=== PATIENT | male | born 1955 | race Caucasian/White ===

== ENCOUNTER → 2016-07-13 | Outpatient (CLI) | payer BC ==
[2016-07-13 13:49] LABS: BLOOD UREA NITROGEN 15 mg/dl (7-18); BUN/CREATININE RATIO 10.8 (10-20); CALCIUM 9.6 mg/dl (8.5-10.1); CARBON DIOXIDE 30 mmol/L (21-32); CHLORIDE 103 mmol/L (98-107); GLUCOSE 82 mg/dl (70-99); POTASSIUM 4.4 mmol/L (3.5-5.1); SODIUM 141 mmol/L (136-145)
[2016-07-13 13:56] LABS: CHOLESTEROL 226 mg/dl (0-200); CHOLESTEROL/HDL RATIO 3.2; HDL CHOLESTEROL 70 mg/dl; LDL CHOLESTEROL CALCULATED 139 mg/dl; TRIGLYCERIDES 83 mg/dl (0-150); VERY LOW DENSITY LIPOPROT CALC 17 mg/dl
== END | disposition home or self-care (01) ==
LOC: C.LABMFLN 13:39
PROVIDERS: ATTEND Family Medicine
DX: I10 Essential (primary) hypertension (principal); E78.00 Pure hypercholesterolemia, unspecified; Z12.5 Encounter for screening for malignant neoplasm of prostate

== ENCOUNTER → 2017-05-12 | Outpatient (CLI) | payer BC ==
[~2017-05-12] MED LIST: OPTIRAY 320 IV PRN; PATIENT'S ALLERGY INFO NEEDS ENTERED SCH
--- NOTE | 2017-05-12 09:20 | DIAGNOSTIC IMAGING REPORT ---
CT SCAN OF THE ABDOMEN AND PELVIS WITH IV CONTRAST CLINICAL HISTORY: Chronic left lower quadrant abdominal pain. COMPARISON STUDY: Abdominal CT dated 03/22/2016. TECHNIQUE: Following the IV administration of 94 cc of Optiray 320, CT scan of the abdomen and pelvis is performed from the lung bases to the proximal femora. Images are reviewed in the axial, sagittal, and coronal planes. IV contrast was administered without complication. A dose lowering technique was utilized adhering to the principles of ALARA. CT DOSE: 322.30 mGy.cm FINDINGS: Lung bases: The heart is normal in size and without pericardial effusion. Fat-containing Bochdalek hernias are present at both lung bases. There is bibasilar scarring versus atelectasis. No airspace consolidation or pleural effusion is seen. There is a tiny hiatal hernia. Liver: The contrast-enhanced liver is normal in size, contour, and attenuation. There is no intrahepatic biliary ductal dilatation. Scattered hepatic cysts measure up to 2.2 cm. Additional subcentimeter hypodensities also likely represent cysts but are too small for definitive characterization. The hepatic veins and portal veins are patent. Gallbladder: Unremarkable. Spleen: Normal in size and attenuation. Pancreas: Unremarkable. Adrenal glands: Unremarkable. Kidneys: The contrast enhanced kidneys demonstrate cortical atrophy. There is mild to moderate left-sided hydroureteronephrosis. The left ureter is dilated to the level of the bladder. Nonspecific urothelial thickening and enhancement is seen within left renal pelvis and the left ureter. There is heterogeneous enhancement of the left kidney. There is indeterminant soft tissue suggested at the left vesicoureteral junction seen on axial image #352. There is no right-sided hydronephrosis. The right kidney enhances homogeneously. A 3.2 cm cyst is seen on the right. Abdominal vasculature: The abdominal aorta is normal in course and caliber noting mild atherosclerotic calcification. Bowel: There is mild colonic diverticulosis without CT evidence of acute diverticulitis. Moderate constipation is observed. No bowel obstruction is seen. The appendix is well-visualized and normal. Peritoneum: There is no intraperitoneal free air or abdominal ascites. There is a fat-containing umbilical hernia. Lymphadenopathy: None. Pelvic viscera: The prostate gland is markedly enlarged and heterogeneous, measuring 6.5 cm in transverse diameter. There is median lobe hypertrophy. The bladder wall is thickened and trabeculated and there are numerous small bladder diverticula consistent with chronic outlet obstruction. Postoperative change is consistent with previous left inguinal herniorrhaphy. Skeletal structures: No lytic or blastic lesions are seen. IMPRESSION: 1. There is mild to moderate left hydroureteronephrosis, with the ureter dilated to the level of the bladder. No obstructing calculus is identified. Abnormal soft tissue is suggested at the left vesicoureteral junction. Although this could be related to prostatomegaly and bladder wall thickening, a urothelial lesion is not excluded. Follow-up with urology is recommended. 2. Urothelial thickening and enhancement is seen in the left renal pelvis and the left ureter. There is heterogeneous perfusion of left kidney. These findings may be related to obstruction. Correlate clinically and with urinalysis for evidence of superimposed urinary tract infection. 3. The prostate gland is markedly enlarged and heterogeneous. The appearance of the bladder is consistent with chronic outlet obstruction. 4. Mild colonic diverticulosis without CT evidence of acute diverticulitis. 5. Moderate constipation. 6. Additional findings as above. Electronically signed by: Andre Martinez M.D. 05/12/2017 9:19 AM Dictated Date/Time: 05/12/2017 9:04 AM
== END | disposition home or self-care (01) ==
LOC: C.CTS 08:35
PROVIDERS: ATTEND Family Medicine
DX: R10.32 Left lower quadrant pain (principal)

== ENCOUNTER → 2017-05-20 | Outpatient (CLI) | payer BC ==
[~2017-05-20] MED LIST changes: +OPTIRAY 300 IV PRN; -OPTIRAY 320 IV PRN; -PATIENT'S ALLERGY INFO NEEDS ENTERED SCH
--- NOTE | 2017-05-24 09:43 | DIAGNOSTIC IMAGING REPORT ---
IVP CLINICAL HISTORY: Hydronephrosis. Lower abdominal pain. COMPARISON STUDY: CT of the abdomen and pelvis May 12, 2017. 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 Intravenous pyelogram was then performed following intravenous injection of 100 cc of Optiray 320. FINDINGS: [employer] KUB demonstrates no urinary calculi. The left nephrogram is slightly delayed. No right hydronephrosis or right hydroureter is present. A cyst within the upper pole of the right kidney is better depicted on CT of May 12, 2017. 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 There is no significant left hydroureter. The possible distal left ureteral abnormality shown on CT of May 12, 2017 is not well evaluated on this examination. There is irregularity and underfilling of the infundibula and calyces within the mid to lower pole of the left kidney. No additional urothelial abnormalities are identified on this exam. IMPRESSION: 1. Irregularity and underfilling of the infundibula and calyces within the mid to lower pole of the left kidney. This is nonspecific and could be due to scarring, an infectious process or a urothelial lesion. Consideration could be given to further evaluation with a short-term follow-up hematuria protocol CT or ureteroscopy. 2. Partially duplicated left collecting system. No significant hydronephrosis or hydroureter. 3. The possible distal left ureteral abnormality shown on CT of May 12, 2017 is not well evaluated on this exam. 4. Mildly delayed left nephrogram. Electronically signed by: Carlo Nam M.D. 05/20/2017 4:13 PM Dictated Date/Time: 05/20/2017 3:35 PM
== END | disposition home or self-care (01) ==
LOC: C.RAD 14:09
PROVIDERS: ATTEND Urology
DX: N13.30 Unspecified hydronephrosis (principal)

== ENCOUNTER 2017-06-07 09:01 | Day surgery (SDC) | payer BC ==
[2017-06-03 11:01] VITALS: BMI 24.0
--- NOTE | 2017-06-03 11:25 | PAT Medication Instructions ---
Service Date Jun 03, 2017. Current Home Medication List Dutasteride (Avodart), 0.5 MG PO QPM Fish Oil ([place]-3), 1 CAP PO BID Fluticasone Propionate (Fluticasone Propionate), 2 SPRAYS NA DAILY PRN for sinus congestion Melatonin (Melatonin Maximum Strengt), 1 TAB PO HS PRN for Sleep Metoprolol Tartrate (Lopressor) (Lopressor), 25 MG PO BID Multivitamin (Multivitamin), 1 TAB PO QAM Red Yeast Rice Extract (Red Yeast Rice), 600 MG PO QDD Sumatriptan Succinate (Imitrex), 100 MG PO PRN PRN for Migraine [proair hfa], 2 PUFFS INH DAILY PRN for SOB/Wheezing Medication Instructions For Your Scheduled Surgery - Hold the following medications as of 06/03/17: Red Yeast Rice Extract (Red Yeast Rice), 600 MG PO QDD Fish Oil ([place]-3), 1 CAP PO BID - Hold the following medications the morning of surgery: Multivitamin (Multivitamin), 1 TAB PO QAM - Take the following medications the morning of surgery with a sip of water OTHERWISE NOTHING TO EAT OR DRINK AFTER MIDNIGHT: Metoprolol Tartrate (Lopressor) (Lopressor), 25 MG PO BID Sumatriptan Succinate (Imitrex), 100 MG PO PRN PRN for Migraine Fluticasone Propionate (Fluticasone Propionate), 2 SPRAYS NA DAILY PRN for sinus congestion - Take the following medications as scheduled the night before surgery: Metoprolol Tartrate (Lopressor) (Lopressor), 25 MG PO BID Sumatriptan Succinate (Imitrex), 100 MG PO PRN PRN for Migraine Dutasteride (Avodart), 0.5 MG PO QPM Melatonin (Melatonin Maximum Strengt), 1 TAB PO HS PRN for Sleep If you have any questions please call us at [phone] or [phone] or [phone]
--- NOTE | 2017-06-03 12:14 | DIAGNOSTIC IMAGING REPORT ---
CHEST 2 VIEWS ROUTINE HISTORY: 62 years-old Male pat preoperative exam. No acute chest complaints. COMPARISON: CT abdomen and pelvis 05/12/2017 TECHNIQUE: PA and lateral views of the chest FINDINGS: Lungs are mildly hyperinflated and hyperlucent suggesting emphysema. Cardiomediastinal and hilar silhouettes are within normal limits. No pneumothorax, pleural effusion, focal airspace consolidation or overt pulmonary edema. Minimal subsegmental bibasilar atelectasis and/or scarring. Mild degenerative changes of the spine. IMPRESSION: Hyperinflation with probable emphysema. No acute process. The above report was generated using voice recognition software. It may contain grammatical, syntax or spelling errors. Electronically signed by: John Smith M.D. 06/03/2017 12:13 PM Dictated Date/Time: 06/03/2017 12:11 PM
[2017-06-03 12:26] LABS: BASO % 0.3 %; BASO ABS # 0.03 K/uL (0-0.2); EOS % 1.1 %; EOS ABS # 0.11 K/uL (0-0.5); HEMATOCRIT 47.7 % (42-52); HEMOGLOBIN 17.1 g/dL (14.0-18.0); IG# 0.02 K/uL (0.00-0.02); LYMPH % 22.7 %; MEAN CELL VOLUME 93.2 fL (80-100); MEAN CORPUSCULAR HEMOGLOBIN 33.4 pg (25-34); MEAN CORPUSCULAR HGB CONC 35.8 g/dl (32-36); MEAN PLATELET VOLUME 9.8 fL (7.4-10.4); MONO % 9.7 %; MONO ABS # 0.94 K/uL (0.11-0.59); NEUT ABS # 6.38 K/uL (1.4-6.5); PLATELET COUNT 224 K/uL (130-400); RED CELL DISTRIBUTION WIDTH CV 13.9 % (11.5-14.5); RED CELL DISTRIBUTION WIDTH SD 47.5 fL (36.4-46.3); WHITE BLOOD COUNT 9.68 K/uL (4.8-10.8)
[2017-06-03 13:23] LABS: CALCIUM 9.3 mg/dl (8.5-10.1); CREATININE 1.22 mg/dl (0.60-1.40)
[~2017-06-07] VITALS: Ht 177.8 cm; Wt 76.4 kg
[~2017-06-07 09:01] MED LIST changes: +CIPROFLOXACIN / D5W 400 MG IV SCH; +DUTA0.5C PO; +FLNIN; +LACTATED RINGER'S 1000ML 1,000 ML IV SCH; +MELATAB2 PO; +METO25TA56 PO; +MULT-506 PO; +OMEG10007 PO; -OPTIRAY 300 IV PRN; +RED1CAP5 PO; +SUMA100T16 PO; +VANCOMYCIN 1GM ED/ASU OMNICELL 270 ML IV SCH; +proair hfa INH
[2017-06-07 09:22] VITALS: BP 142/91; PULSE 60; TEMP 36.6; O2SAT 96; Ht 177.8 cm; Wt 76.4 kg
[2017-06-07] MEDS ORDERED: FENTANYL CITRATE INJ 50 MCG/1 ML 2 ML VIAL ONE (10:04)
[2017-06-07] MEDS ORDERED: MIDAZOLAM HCL 1 MG/ML 2ML VIAL ONE (10:04)
--- NOTE | 2017-06-07 10:09 | History & Physical Bridge Note ---
H&P Re-Evaluation Bridge Note: I have examined the patient, reviewed the History & Physical and in the interval since the performance of the History & Physical I have noted the following changes of clinical significance: No changes noted
[2017-06-07] MEDS ORDERED: CONRAY 30% 150ML BOTTLE ONE (10:21)
[2017-06-07] MEDS ORDERED: ATROPINE SULFATE 0.1 MG/ML 5ML SYR IV PRN (10:45)
[2017-06-07] MEDS ORDERED: FENTANYL CITRATE INJ 50 MCG/1 ML 2 ML VIAL IV PRN (10:45)
[2017-06-07] MEDS ORDERED: HYDROmorphone INJ 0.5 MG/0.5 ML SYR IV PRN (10:45)
[2017-06-07] MEDS ORDERED: EpHEDrine SULFATE INJ 50 MG/ML AMP IV PRN (10:45)
[2017-06-07] MEDS ORDERED: ONDANSETRON INJ 2 MG/ML 2 ML VIAL IV PRN (10:45)
[2017-06-07] MEDS ORDERED: LABETALOL HCL IV 5 MG/ML 20ML IV PRN (10:45)
[2017-06-07] MEDS ORDERED: MEPERIDINE HCL 25 MG/ML CARP IV PRN (10:45)
[2017-06-07] MEDS ORDERED: DEXAMETHASONE SOD INJ 4 MG/ML VIAL ONE (10:50)
[2017-06-07] MEDS ORDERED: LIDOCAINE HCL 2% 2 ML VIAL (20MG/ML) ONE (10:50)
[2017-06-07] MEDS ORDERED: ONDANSETRON INJ 2 MG/ML 2 ML VIAL ONE (10:50)
[2017-06-07] MEDS ORDERED: PROPOFOL IV EMULSION 10 MG/ML 20 ML VIAL IV ONE (10:50)
[2017-06-07] MEDS ORDERED: EpHEDrine SULFATE INJ 50 MG/ML AMP ONE (10:50)
[2017-06-07] MEDS ORDERED: PHEN-775 PO (11:15)
[2017-06-07] MEDS ORDERED: HYDR-5688 PO (11:15)
[2017-06-07] MEDS ORDERED: SULF800T23 PO (11:15)
[2017-06-07] MEDS ORDERED: SODIUM CHLORIDE 0.9% 1000ML 1,000 ML IV SCH (11:17)
--- NOTE | 2017-06-07 11:17 | Discharge Instructions ---
Discharge Instructions Date of Service Jun 07, 2017. Admission Reason for Admission: Hydronephrosis, Left Flank Pain Discharge Discharge Diagnosis / Problem: Hydronephrosis, Left flank pain Discharge Goals Goal(s): Decrease discomfort, Improve function, Increase independence, Improve disease control Activity Recommendations Activity Limitations: resume your previous activity Lifting Limitations: none Exercise/Sports Limitations: none May Resume Sexual Activity: when tolerated Shower/Bathe: no limitations Driving or Machine Use: resume 1 day after discharge . Instructions / Follow-Up Instructions / Follow-Up Dr. Wise's office will call you later today or tomorrow to arrange for catheter and stent removal on . Current Hospital Diet Patient's current hospital diet: Discharge Diet Recommended Diet: Regular Diet Procedures Procedures Performed: Cystoscopy, Left Ureteroscopy, Left Stent Placement Pending Studies Studies pending at discharge: no Medical Emergencies . Who to Call and When: Medical Emergencies: If at any time you feel your situation is an emergency, please call 911 immediately. . Non-Emergent Contact Non-Emergency issues call your: Urologist Call Non-Emergent contact if: you have a fever, temperature is above 101.5, your pain is not controlled . . "Provider Documentation" section prepared by Peter Castaneda. . VTE Core Measure Inpt VTE Proph given/why not?: Treatment not indicated [place] Drug Monitoring Program Search Results: patient reviewed within database, no issues identified
--- NOTE | 2017-06-07 11:23 | [facility] Operative Report ---
Operative Report Operative Date Jun 07, 2017. Pre-Operative Diagnosis Left hydronephrosis, left renal mass Post-Operative Diagnosis same as pre-operative Procedure(s) Performed Cystoscopy, Left Ureteroscopy, Left Stent Placement Surgeon Dr. Gamaliel Wise Herpetologist Surgeon(s) none Estimated Blood Loss none Findings Significantly enlarged prostate with a very large intravesical median lobe - likely causing J hooking of the distal ureter. Slight Hutch diverticulum on the left. Hydronephrosis extending from the kidney to the bladder. Healthy- appearing kidney aside from the hydronephrosis without evidence of tumor Specimens none Drains 18 Hungarian coud catheter; 6 Hungarian by 2232 centimeter double-J ureteral st Anesthesia gen Complication(s) None Disposition Recovery Room / PACU (stable) Indications Hydronephrosis and pain - imaging concern for tumor Description of Procedure The patient was identified in the preoperative holding area, consents were reviewed and completed, and the patient was transported to the operating suite. Upon arrival he received appropriate preoperative antibiotics in the form of vancomycin. Adequate general anesthesia was achieved, and he was placed in dorsal lithotomy position where he was sterilely prepped and draped in standard fashion. I began the case by passing a 22 Hungarian cystoscope with 30 lens. Inspection of the urethra revealed no evidence of stricture disease. Prostate was notably enlarged with significant intravesical median lobe. He has a heavily trabeculated bladder with numerous cellules and small diverticuli. The left ureteral orifice was not easily identified the right was found without difficulty. I attempted to traced the trigonal ridge and identified the left ureteral orifice within the diverticulum immediately posterior to the median lobe. With fluoroscopic guidance, I was able to advance a wire to the kidney. There did seem to be some J hooking of the distal ureter consistent with obstruction. I then passed a semirigid ureteroscope adjacent to the wire and guided into the distal left ureter. Inspection of the distal ureter revealed no evidence of tumors. He has a notably dilated ureter extending all the way to the bladder. There was enough flexibility and then this lumen, and I was able to advance the scope to the level of the UPJ. The full length of the ureter is very healthy. I passed a second wire through the lumen of the scope and into the kidney. After withdrawing the semirigid scope, I advanced a flexible scope without difficulty. Full renoscopy was carried out. His renal pelvis and calyces were all blunted and dilated. The lower pole was the most pronounced. There was no mucosal disease and no tumors identified. After performing a repeat renoscopy I performed a careful exit ureteroscopy again confirming a healthy-appearing ureter. As a precaution, I placed a 6 Hungarian by 22-32 centimeter double-J ureteral stent with a string left attached. Given his prior urinary retention, I placed an 18 Hungarian coud catheter and concluded the case. I attest to the content of the Intraoperative Record and any orders documented therein. Any exceptions are noted below.
[2017-06-07] MEDS ORDERED: ESMOLOL HCL 10 MG/ML 10 ML VIAL ONE (11:24)
[2017-06-07] MEDS ORDERED: ACETAMINOPHEN 325 MG TAB PO PRN (11:30)
[2017-06-07] MEDS ORDERED: HYDROCODONE/ACETAMIN 5/325MG TAB PO PRN ×2 (11:30)
[2017-06-07 12:00] VITALS: BP 131/89; PULSE 75; TEMP 36.8; O2SAT 94
[2017-06-07 12:35] VITALS: BP 124/73; PULSE 75; TEMP 36.4; O2SAT 93
--- NOTE | 2017-06-07 12:42 | Anesthesiology Progress Note ---
Anesthesia Post Op Note Date & Time Jun 07, 2017 at 12:42 Vital Signs Pain Intensity: 0 Vital Signs Past 12 Hours Date Time Temp Pulse Resp B/P (MAP) Pulse Ox O2 Delivery O2 Flow Rate FiO2 06/07/17 12:00 36.8 75 18 131/89 94 Room Air 06/07/17 11:55 36.6 75 16 141/82 94 Room Air 06/07/17 11:45 71 16 125/77 94 Room Air 06/07/17 11:35 73 16 126/73 97 Oxymask 3 06/07/17 11:25 71 16 123/72 98 Oxymask 5 06/07/17 11:16 36.5 84 16 129/79 97 Oxymask 5 06/07/17 09:22 36.6 60 18 142/91 (108) 96 Room Air Notes Mental Status: alert / awake / arousable, participated in evaluation Pt Amnestic to Procedure: Yes Nausea / Vomiting: adequately controlled Pain: adequately controlled Airway Patency, RR, SpO2: stable & adequate BP & HR: stable & adequate Hydration State: stable & adequate Anesthetic Complications: no major complications apparent
--- NOTE | 2017-06-07 13:30 | DIAGNOSTIC IMAGING REPORT ---
KUB CLINICAL HISTORY: 62 years-old Male presenting with LT CYSTO/STENT. TECHNIQUE: 5 fluoroscopic spot image(s) obtained as part of an intraoperative procedure. COMPARISON: CT from 05/12/2017. FINDINGS/IMPRESSION: Interval cystoscopy with placement of a guidewire into the left renal collecting system. Subsequently a double-J ureteral stent was introduced. Please see surgical report for further details. Fluoroscopy dosage (mGy): 2.24. Fluoroscopy time: 13.6 seconds. Number of fluoroscopic spot images: 5. Electronically signed by: Noe Shelby M.D. 06/07/2017 1:29 PM Dictated Date/Time: 06/07/2017 1:28 PM
== END 2017-06-07 12:52 | disposition home or self-care (01) ==
LOC: C.ACU 09:01
PROVIDERS: ATTEND Urology
DX: N13.30 Unspecified hydronephrosis (principal); I10 Essential (primary) hypertension; N40.1 Benign prostatic hyperplasia with lower urinary tract symptoms; N13.8 Other obstructive and reflux uropathy; J30.9 Allergic rhinitis, unspecified; E78.00 Pure hypercholesterolemia, unspecified; J45.20 Mild intermittent asthma, uncomplicated; Z86.72 Personal history of thrombophlebitis; Z82.5 Family history of asthma and other chronic lower respiratory diseases; Z80.0 Family history of malignant neoplasm of digestive organs

== ENCOUNTER → 2017-10-06 | Outpatient (CLI) | payer BC ==
[~2017-10-06] MED LIST changes: -CIPROFLOXACIN / D5W 400 MG IV SCH; +HYDR-5688 PO; -LACTATED RINGER'S 1000ML 1,000 ML IV SCH; -VANCOMYCIN 1GM ED/ASU OMNICELL 270 ML IV SCH
[2017-10-06 17:45] LABS: BASO % 0.5 %; BASO ABS # 0.04 K/uL (0-0.2); EOS % 1.2 %; HEMATOCRIT 47.8 % (42-52); HEMOGLOBIN 16.5 g/dL (14.0-18.0); IG# 0.02 K/uL (0.00-0.02); LYMPH % 36.3 %; LYMPH ABS # 3.11 K/uL (1.2-3.4); MEAN CELL VOLUME 93.5 fL (80-100); MEAN CORPUSCULAR HEMOGLOBIN 32.3 pg (25-34); MEAN CORPUSCULAR HGB CONC 34.5 g/dl (32-36); MONO % 9.9 %; MONO ABS # 0.85 K/uL (0.11-0.59); NEUT % 51.9 %; NEUT ABS # 4.45 K/uL (1.4-6.5); PLATELET COUNT 226 K/uL (130-400); RED CELL DISTRIBUTION WIDTH CV 13.8 % (11.5-14.5); RED CELL DISTRIBUTION WIDTH SD 47.3 fL (36.4-46.3); WHITE BLOOD COUNT 8.57 K/uL (4.8-10.8)
[2017-10-06 18:29] LABS: BLOOD UREA NITROGEN 25 mg/dl (7-18); CALCIUM 9.1 mg/dl (8.5-10.1); CARBON DIOXIDE 27 mmol/L (21-32); CREATININE 1.36 mg/dl (0.60-1.40); GLUCOSE 88 mg/dl (70-99); POTASSIUM 4.2 mmol/L (3.5-5.1); SODIUM 137 mmol/L (136-145)
== END | disposition home or self-care (01) ==
LOC: C.LABMFLN 13:20
PROVIDERS: ATTEND Urology
DX: Z01.818 Encounter for other preprocedural examination (principal); N40.1 Benign prostatic hyperplasia with lower urinary tract symptoms